=== PATIENT | female | born 1970 | race Caucasian/White ===

== ENCOUNTER 2018-06-25 11:12 | Inpatient (IN) | payer MEDICAID ==
[~2018-06-25] VITALS: Ht 180.3 cm; Wt 114.0 kg
[2018-06-25 12:34] LABS: BASOPHIL % 0.7 % (0-2); PLATELET COUNT 260 x10^3mcL (130-400); RED CELL DISTRIBUTION WIDTH 13.8 % (11.5-14.5)
[2018-06-25 12:47] LABS: BILIRUBIN TOTAL 0.32 mg/dL (0.20-1.00); CARBON DIOXIDE 13.2 mmol/L (21-32); POTASSIUM SERUM 4.2 mmol/L (3.5-5.1); TOTAL PROTEIN, SERUM 6.5 g/dL (6.4-8.2)
[2018-06-25 12:55] LABS: ALBUMIN 2.3 g/dL (3.4-5.0)
[2018-06-25 12:58] LABS: CALCIUM 5.6 mg/dL (8.5-10.1); CREATININE SERUM 15.9 mg/dL (0.6-1.0)
[2018-06-25 13:05] LABS: rbc morphology (normal/abnorm) ABNORMAL (NORMAL); tear drop cell (dacryocyte) 1+
[2018-06-25] MEDS ORDERED: LISINOPRIL10 MG PO (14:35)
[2018-06-25 15:01] LABS: T3 TOTAL 0.73 ng/mL
[2018-06-25 15:03] LABS: FREE T4 0.73 ng/dL (0.76-1.46); FREE THYROXINE INDEX 1.6 ug/dL (1.4-4.5); T4(THYROXINE) 5.1 ug/dL (4.7-13.3)
[2018-06-25 15:08] VITALS: BP 174/89
[2018-06-25 15:22] LABS: MAGNESIUM 1.7 mg/dL (1.8-2.4)
[2018-06-25 15:37] LABS: CHOLESTEROL/HDL RATIO 3.2
[2018-06-25 16:10] LABS: PHOSPHOROUS 9.9 mg/dL (2.5-4.9)
[2018-06-25 16:44] VITALS: BP 151/82
[2018-06-25 17:50] LABS: RED BLOOD CELLS 2.31 M/mm3 (4.10-5.10)
[2018-06-25 18:07] LABS: IRON 30 ug/dL (50-170); TOTAL IRON BINDING CAPACITY 189 ug/dL (250-450)
[2018-06-25 18:15] VITALS: BP 151/82
[2018-06-25 18:30] VITALS: BP 169/86
[2018-06-25 20:01] LABS: CREATININE UR 30.5 mg/dL
[2018-06-25 20:20] VITALS: BP 145/74
[2018-06-25 22:00] VITALS: BP 160/82
[2018-06-25 23:32] LABS: BASOPHIL % 0.7 % (0-2); PLATELET COUNT 252 x10^3mcL (130-400)
[2018-06-25 23:39] LABS: RED CELL DISTRIBUTION WIDTH 14.8 % (11.5-14.5)
[2018-06-26 05:53] VITALS: BP 184/95
[2018-06-26 06:22] LABS: CALCIUM 6.2 mg/dL (8.5-10.1); CARBON DIOXIDE 13.4 mmol/L (21-32); MAGNESIUM 1.6 mg/dL (1.8-2.4); POTASSIUM SERUM 4.4 mmol/L (3.5-5.1)
[2018-06-26 06:26] LABS: BASOPHIL % 0.9 % (0-2); PLATELET COUNT 274 x10^3mcL (130-400); RED CELL DISTRIBUTION WIDTH 14.4 % (11.5-14.5)
[2018-06-26 06:37] LABS: CREATININE SERUM 15.4 mg/dL (0.6-1.0)
[2018-06-26 07:03] LABS: PHOSPHOROUS 9.6 mg/dL (2.5-4.9)
[2018-06-26 07:21] VITALS: BP 179/86
[2018-06-26 08:46] VITALS: BP 174/88
[2018-06-26 12:25] VITALS: BP 171/88
[2018-06-26 14:37] VITALS: Ht 180.3 cm; Wt 114.0 kg
[2018-06-26 19:13] VITALS: BP 166/93
[2018-06-26 20:54] VITALS: BP 177/92
[2018-06-27] VITALS (8 sets, daily range): BP systolic 148–185; BP diastolic 63–92
[2018-06-27 06:46] LABS: BILIRUBIN TOTAL 0.3 mg/dL (0.20-1.00); CALCIUM 6.4 mg/dL (8.5-10.1); CARBON DIOXIDE 20.6 mmol/L (21-32); MAGNESIUM 1.8 mg/dL (1.8-2.4); PHOSPHOROUS 6.7 mg/dL (2.5-4.9); POTASSIUM SERUM 3.4 mmol/L (3.5-5.1)
[2018-06-27 06:47] LABS: TOTAL PROTEIN, SERUM 5.9 g/dL (6.4-8.2)
[2018-06-27 06:49] LABS: BASOPHIL % 0.8 % (0-2); PLATELET COUNT 237 x10^3mcL (130-400); RED CELL DISTRIBUTION WIDTH 14.5 % (11.5-14.5)
[2018-06-27 06:50] LABS: CREATININE SERUM 11.2 mg/dL (0.6-1.0)
[2018-06-27 08:33] LABS: ALPHA FETOPROTEIN TUMOR MARKER 1.9 ng/mL (0.0-8.3); CA 125 19.1 U/mL (0.0-38.1)
[2018-06-28 05:02] VITALS: BP 151/74
[2018-06-28 06:54] LABS: BASOPHIL % 0.8 % (0-2); PLATELET COUNT 235 x10^3mcL (130-400)
[2018-06-28 07:03] LABS: CALCIUM 6.4 mg/dL (8.5-10.1); CARBON DIOXIDE 19.3 mmol/L (21-32); MAGNESIUM 1.9 mg/dL (1.8-2.4); PHOSPHOROUS 7.1 mg/dL (2.5-4.9); POTASSIUM SERUM 3.6 mmol/L (3.5-5.1)
[2018-06-28 07:06] LABS: CREATININE SERUM 11.8 mg/dL (0.6-1.0)
[2018-06-28 07:09] LABS: RED CELL DISTRIBUTION WIDTH 14.6 % (11.5-14.5)
[2018-06-28 08:35] VITALS: BP 188/90
[2018-06-28 12:58] VITALS: BP 191/95
[2018-06-28 15:00] VITALS: BP 191/88
[2018-06-28 17:03] VITALS: BP 126/75
[2018-06-28] MEDS ORDERED: PHOS PO (17:04)
[2018-06-28] MEDS ORDERED: PRI20 PO (17:05)
[2018-06-28] MEDS ORDERED: FLA500 PO (17:06)
[2018-06-28] MEDS ORDERED: NOR5 PO (17:53)
[2018-06-28] MEDS ORDERED: LASIX20 MG PO (18:11)
[2018-06-28] MEDS ORDERED: ZOFRAN ODT4 MG SL (18:12)
[2018-06-28] MEDS ORDERED: BIA500 PO (18:24)
== END 2018-06-28 20:07 | disposition home or self-care (01) | DRG 470 ==
LOC: ED 11:12 → DU 13:48
PROVIDERS: Emergency Medicine; Family Medicine; Internal Medicine; Internal Medicine Gastroenterology; Surgery
PROC: 0DJD8ZZ Inspection of Lower Intestinal Tract, Via Natural or Artificial Opening Endoscopic (ICD-10-PCS; 2018-06-26)
PROC: 05HM33Z Insertion of Infusion Device into Right Internal Jugular Vein, Percutaneous Approach (ICD-10-PCS; principal; 2018-06-26 09:30)
PROC: B5131ZA Fluoroscopy of Right Jugular Veins using Low Osmolar Contrast, Guidance (ICD-10-PCS; 2018-06-26 09:30)
PROC: 0DB78ZX Excision of Stomach, Pylorus, Via Natural or Artificial Opening Endoscopic, Diagnostic (ICD-10-PCS; 2018-06-26 09:30)
DX: I12.0 Hypertensive chronic kidney disease with stage 5 chronic kidney disease or end stage renal disease (principal); N17.0 Acute kidney failure with tubular necrosis; E43 Unspecified severe protein-calorie malnutrition; A04.8 Other specified bacterial intestinal infections; E10.21 Type 1 diabetes mellitus with diabetic nephropathy; I32 Pericarditis in diseases classified elsewhere; E83.39 Other disorders of phosphorus metabolism; K26.9 Duodenal ulcer, unspecified as acute or chronic, without hemorrhage or perforation; E10.319 Type 1 diabetes mellitus with unspecified diabetic retinopathy without macular edema; E10.22 Type 1 diabetes mellitus with diabetic chronic kidney disease; D63.1 Anemia in chronic kidney disease; N18.6 End stage renal disease; E87.6 Hypokalemia; E83.51 Hypocalcemia; N25.81 Secondary hyperparathyroidism of renal origin; Z79.4 Long term (current) use of insulin; Z68.34 Body mass index [BMI] 34.0-34.9, adult
CPT/HCPCS: 43235; 45378; 82962; 83880; 84439; 86580; 94150; A4301; J0610; J0690; J0885-EC; J1200; J1610; J1644; J1815; J1940; J2001; J2250; J2310; J2405; J2704; J3010; J3475; J3490; J7030; J7042; J7050; P9016; Q0092; Q0162; Q0163

== ENCOUNTER 2018-07-05 13:40 | Emergency (ER) | payer MEDICAID ==
[~2018-07-05] VITALS: Ht 180.3 cm; Wt 112.5 kg
[~2018-07-05 13:40] MED LIST: BIA500 PO; FLA500 PO; LASIX20 MG PO; LISINOPRIL10 MG PO; NOR5 PO; PHOS PO; PRI20 PO; ZOFRAN ODT4 MG SL
[2018-07-05 14:02] VITALS: Ht 180.3 cm; Wt 112.5 kg
[2018-07-05 14:53] LABS: BASOPHIL % 0.8 % (0-2); PLATELET COUNT 237 x10^3mcL (130-400)
[2018-07-05 14:55] LABS: BILIRUBIN TOTAL 0.2 mg/dL (0.20-1.00); CALCIUM 6.3 mg/dL (8.5-10.1); CARBON DIOXIDE 33.7 mmol/L (21-32); POTASSIUM SERUM 4.3 mmol/L (3.5-5.1); TOTAL PROTEIN, SERUM 6.4 g/dL (6.4-8.2)
[2018-07-05 14:57] LABS: ALBUMIN 2.2 g/dL (3.4-5.0)
[2018-07-05 14:59] LABS: CREATININE SERUM 5.7 mg/dL (0.6-1.0)
[2018-07-05 15:05] LABS: RED CELL DISTRIBUTION WIDTH 14.6 % (11.5-14.5)
[2018-07-05 15:53] VITALS: BP 177/81
== END 2018-07-05 15:53 | disposition home or self-care (01) ==
LOC: ED 13:40
PROVIDERS: Emergency Medicine
DX: D64.9 Anemia, unspecified (principal); R07.89 Other chest pain; R42 Dizziness and giddiness; E11.22 Type 2 diabetes mellitus with diabetic chronic kidney disease; I12.0 Hypertensive chronic kidney disease with stage 5 chronic kidney disease or end stage renal disease; N18.6 End stage renal disease; Z88.6 Allergy status to analgesic agent; Z88.5 Allergy status to narcotic agent
CPT/HCPCS: 36415; 83880

== ENCOUNTER 2018-12-14 17:02 | Inpatient (IN) | payer MEDICAID ==
[~2018-12-14] VITALS: Ht 180.3 cm; Wt 110.4 kg
[2018-12-14 17:20] VITALS: Ht 180.3 cm; Wt 110.4 kg
[2018-12-14 19:08] LABS: BASOPHIL % 0.7 % (0-2); PLATELET COUNT 261 x10^3mcL (130-400)
[2018-12-14 19:15] LABS: RED CELL DISTRIBUTION WIDTH 17.1 % (11.5-14.5)
[2018-12-14 19:23] LABS: BILIRUBIN TOTAL 0.3 mg/dL (0.20-1.00); CALCIUM 8.2 mg/dL (8.5-10.1); CARBON DIOXIDE 34.2 mmol/L (21-32); POTASSIUM SERUM 5.2 mmol/L (3.5-5.1); TOTAL PROTEIN, SERUM 7.5 g/dL (6.4-8.2)
[2018-12-14 19:35] LABS: ALBUMIN 3.3 g/dL (3.4-5.0); CREATININE SERUM 5.4 mg/dL (0.6-1.0)
[2018-12-14] MEDS ORDERED: LASIX40 MG (22:55)
[2018-12-14 23:07] LABS: UA SPECIFIC GRAVITY 1.015 (1.005-1.035); microscopic required? YES; urine erythrocyte 1+ (NEGATIVE)
[2018-12-14 23:15] LABS: AMPHETAMINE QUAL UR NONE DETECTED (See below)
[2018-12-14 23:19] LABS: MAGNESIUM 2.2 mg/dL (1.8-2.4); PHOSPHOROUS 3.9 mg/dL (2.5-4.9)
[2018-12-15 00:05] VITALS: BP 184/98
[2018-12-15 06:12] VITALS: BP 155/78
[2018-12-15 07:03] LABS: BASOPHIL % 0.8 % (0-2); PLATELET COUNT 248 x10^3mcL (130-400)
[2018-12-15 07:04] LABS: RED CELL DISTRIBUTION WIDTH 17.3 % (11.5-14.5)
[2018-12-15 07:08] LABS: CALCIUM 7.7 mg/dL (8.5-10.1); CARBON DIOXIDE 31.1 mmol/L (21-32); MAGNESIUM 2.1 mg/dL (1.8-2.4); PHOSPHOROUS 4.4 mg/dL (2.5-4.9); POTASSIUM SERUM 5.2 mmol/L (3.5-5.1)
[2018-12-15 09:10] VITALS: BP 156/83
[2018-12-15 12:00] VITALS: BP 151/73
[2018-12-15 18:40] VITALS: BP 177/91
[2018-12-15 21:39] VITALS: BP 145/70
[2018-12-16 00:10] VITALS: BP 158/84
[2018-12-16 07:15] LABS: BASOPHIL % 0.6 % (0-2); PLATELET COUNT 230 x10^3mcL (130-400); RED CELL DISTRIBUTION WIDTH 17.6 % (11.5-14.5)
[2018-12-16 07:30] LABS: CALCIUM 8.1 mg/dL (8.5-10.1); CARBON DIOXIDE 31.3 mmol/L (21-32); PHOSPHOROUS 4.8 mg/dL (2.5-4.9); POTASSIUM SERUM 4.8 mmol/L (3.5-5.1)
[2018-12-16 07:44] LABS: CREATININE SERUM 5.2 mg/dL (0.6-1.0)
[2018-12-16 09:17] VITALS: BP 179/91
[2018-12-16 13:07] VITALS: BP 175/92
[2018-12-16 18:09] VITALS: BP 184/93
[2018-12-16 21:33] VITALS: BP 169/89
[2018-12-17 06:27] VITALS: BP 149/67
[2018-12-17 07:33] LABS: CALCIUM 7.9 mg/dL (8.5-10.1)
[2018-12-17 07:52] LABS: CREATININE SERUM 6.6 mg/dL (0.6-1.0); POTASSIUM SERUM 5.6 mmol/L (3.5-5.1)
[2018-12-17 08:11] LABS: BASOPHIL % 0.6 % (0-2); PLATELET COUNT 237 x10^3mcL (130-400)
[2018-12-17 09:20] VITALS: BP 161/82
[2018-12-17] MEDS ORDERED: ZITHROMAX TRI-500 MG PO (10:34)
[2018-12-17 15:01] VITALS: BP 180/94
[2018-12-17 16:19] VITALS: BP 168/87
[2018-12-17 16:23] VITALS: BP 164/85
[2018-12-17 17:45] VITALS: BP 135/64
== END 2018-12-17 19:40 | disposition home or self-care (01) | DRG 139 ==
LOC: ED 17:02 → DU 22:24
PROVIDERS: Emergency Medicine; ADMIT General Practice
DX: J18.9 Pneumonia, unspecified organism (principal); N17.0 Acute kidney failure with tubular necrosis; I12.0 Hypertensive chronic kidney disease with stage 5 chronic kidney disease or end stage renal disease; N18.6 End stage renal disease; E10.22 Type 1 diabetes mellitus with diabetic chronic kidney disease; E10.65 Type 1 diabetes mellitus with hyperglycemia; E44.1 Mild protein-calorie malnutrition; E87.5 Hyperkalemia; N39.0 Urinary tract infection, site not specified; R80.9 Proteinuria, unspecified; D63.1 Anemia in chronic kidney disease; Z99.2 Dependence on renal dialysis; Z79.4 Long term (current) use of insulin; Z68.32 Body mass index [BMI] 32.0-32.9, adult
CPT/HCPCS: 82962; 87804; J0360; J0456; J0696; J0885-EC; J1644; J1815; J1940; J2765; J7030; J7050; J7620; Q0092

== ENCOUNTER 2019-10-26 21:52 | Inpatient (IN) | payer OTHER, MEDICAID ==
[~2019-10-26] VITALS: Ht 180.3 cm; Wt 100.2 kg
[~2019-10-26 21:52] MED LIST changes: +LASIX40 MG; +ZITHROMAX TRI-500 MG PO
[2019-10-26 21:57] VITALS: Ht 180.3 cm; Wt 100.2 kg
[2019-10-26 22:39] LABS: BASOPHIL % 0.5 % (0-2); PLATELET COUNT 207 x10^3mcL (130-400); RED CELL DISTRIBUTION WIDTH 14.8 % (11.5-14.5)
[2019-10-26 23:01] LABS: ALBUMIN 3.5 g/dL (3.4-5.0); BILIRUBIN TOTAL 0.59 mg/dL (0.20-1.00); CALCIUM 8.6 mg/dL (8.5-10.1); CARBON DIOXIDE 27.1 mmol/L (21-32); POTASSIUM SERUM 4.6 mmol/L (3.5-5.1); TOTAL PROTEIN, SERUM 7.6 g/dL (6.4-8.2)
[2019-10-26 23:03] LABS: CREATININE SERUM 7.8 mg/dL (0.6-1.0)
[2019-10-26] MEDS ORDERED: LABETALOL HYDR200 M1 PO (23:58)
[2019-10-26] MEDS ORDERED: LASIX40 MG PO (23:58)
[2019-10-26] MEDS ORDERED: ASPIR 8181 MG PO (23:59)
[2019-10-26] MEDS ORDERED: AMLODIPINE BESY10 M2 PO (23:59)
[2019-10-26] MEDS ORDERED: LISINOPRIL10 MG PO (23:59)
[2019-10-27 02:18] VITALS: BP 152/81
[2019-10-27 03:14] LABS: MAGNESIUM 2.1 mg/dL (1.8-2.4); PHOSPHOROUS 6.6 mg/dL (2.5-4.9)
[2019-10-27 03:20] LABS: FREE THYROXINE INDEX 2.7 ug/dL (1.4-4.5); T4(THYROXINE) 7.5 ug/dL (4.7-13.3)
[2019-10-27 03:23] LABS: CHOLESTEROL/HDL RATIO 3.1
[2019-10-27 03:53] LABS: FREE T4 1.16 ng/dL (0.76-1.46)
[2019-10-27 05:04] LABS: T3 TOTAL 0.75 ng/mL
[2019-10-27 05:58] VITALS: BP 147/68
[2019-10-27 07:07] LABS: BASOPHIL % 0.3 % (0-2); PLATELET COUNT 170 x10^3mcL (130-400)
[2019-10-27 07:15] LABS: CALCIUM 7.9 mg/dL (8.5-10.1); CARBON DIOXIDE 28.4 mmol/L (21-32); PHOSPHOROUS 7.4 mg/dL (2.5-4.9)
[2019-10-27 07:23] LABS: CREATININE SERUM 8.4 mg/dL (0.6-1.0)
[2019-10-27 07:48] LABS: RED CELL DISTRIBUTION WIDTH 14.6 % (11.5-14.5)
[2019-10-27 09:40] VITALS: BP 130/56
[2019-10-27 13:33] VITALS: BP 131/62
[2019-10-27 17:10] VITALS: BP 129/78
[2019-10-27 20:59] VITALS: BP 134/62
[2019-10-28 06:06] VITALS: BP 144/61
[2019-10-28 07:53] LABS: CALCIUM 7.7 mg/dL (8.5-10.1); CARBON DIOXIDE 25.2 mmol/L (21-32); PHOSPHOROUS 8.6 mg/dL (2.5-4.9); POTASSIUM SERUM 4.5 mmol/L (3.5-5.1)
[2019-10-28 07:57] LABS: CREATININE SERUM 9.9 mg/dL (0.6-1.0)
[2019-10-28 08:23] LABS: BASOPHIL % 0.7 % (0-2); PLATELET COUNT 168 x10^3mcL (130-400); RED CELL DISTRIBUTION WIDTH 14.5 % (11.5-14.5)
[2019-10-28 09:15] VITALS: BP 130/64
[2019-10-28 12:20] VITALS: BP 137/74
[2019-10-28 17:20] VITALS: BP 140/69
[2019-10-28 22:00] VITALS: BP 137/62
[2019-10-29 05:25] VITALS: BP 112/67
[2019-10-29 06:39] LABS: BASOPHIL % 0.5 % (0-2); PLATELET COUNT 172 x10^3mcL (130-400); RED CELL DISTRIBUTION WIDTH 14.1 % (11.5-14.5)
[2019-10-29 07:01] LABS: CARBON DIOXIDE 26.5 mmol/L (21-32); MAGNESIUM 1.9 mg/dL (1.8-2.4); POTASSIUM SERUM 4.4 mmol/L (3.5-5.1)
[2019-10-29 07:04] LABS: CREATININE SERUM 7.8 mg/dL (0.6-1.0)
[2019-10-29 07:39] VITALS: BP 156/75
[2019-10-29] MEDS ORDERED: TAMIFLU75 MG PO (11:33)
[2019-10-29] MEDS ORDERED: TAMIFLU30 MG PO (11:36)
[2019-10-29 12:48] VITALS: BP 136/64
[2019-10-29 17:09] VITALS: BP 131/68
[2019-10-29 18:21] VITALS: BP 124/76
== END 2019-10-29 19:19 | disposition home or self-care (01) | DRG 193 ==
LOC: ED 21:52 → DU 23:52 → MU 23:52 → DU 10-27 01:37 → MU 10-28 14:10
PROVIDERS: Emergency Medicine; ADMIT Family Medicine
PROC: 5A1D70Z Performance of Urinary Filtration, Intermittent, Less than 6 Hours Per Day (ICD-10-PCS; principal; 2019-10-28)
DX: J10.1 Influenza due to other identified influenza virus with other respiratory manifestations (principal); N18.6 End stage renal disease; I50.33 Acute on chronic diastolic (congestive) heart failure; J96.01 Acute respiratory failure with hypoxia; E87.1 Hypo-osmolality and hyponatremia; I13.2 Hypertensive heart and chronic kidney disease with heart failure and with stage 5 chronic kidney disease, or end stage renal disease; E11.65 Type 2 diabetes mellitus with hyperglycemia; D63.1 Anemia in chronic kidney disease; Z99.2 Dependence on renal dialysis; Z68.30 Body mass index [BMI] 30.0-30.9, adult
CPT/HCPCS: 82962; 83880; 84439; 87804; G0378; J1956; J2405; J7620; J7626; Q0092